=== PATIENT | male | born 1940 | race Caucasian/White ===

== ENCOUNTER 2018-02-18 20:49 | Emergency (ER) | payer MEDICARE ==
[~2018-02-18] VITALS: Ht 188 cm; Wt 97.2 kg
[~2018-02-18 20:49] MED LIST: AMIO200T40 PO; ASPI-1071 PO; COLE1TAB2 PO; DABI150C PO; DOCU100C40 PO; FURO40TA4 PO; HYDR-3972 PO; LISI-600 PO; LISI-604 PO; LOVA40TA2 PO; SPIR50TA5 PO
[2018-02-18 21:11] VITALS: BP 184/93
[2018-02-18] MEDS ORDERED: NITR100C6 PO (22:52)
== END 2018-02-18 22:58 | disposition home or self-care (01) ==
LOC: ER 20:50
DX: R35.0 Frequency of micturition (principal); R31.9 Hematuria, unspecified; R33.9 Retention of urine, unspecified
CPT/HCPCS: 99284

== ENCOUNTER 2022-02-13 05:52 | Day surgery (SDC) | payer MEDICARE ==
[2022-02-12 12:05] LABS: BASOPHILS % (AUTO) 0.7 % (0-1); EOSINOPHILS # (AUTO) 0.3 X10'3 (0-0.9); EOSINOPHILS % (AUTO) 5.9 % (0-6); HEMATOCRIT 41.7 % (42.0-52.0); HEMOGLOBIN 13.6 g/dl (14.0-17.9); LYMPHOCYTES # (AUTO) 0.8 X10'3 (1.1-4.8); LYMPHOCYTES % (AUTO) 13.6 % (21-51); MEAN CORPUSCULAR HEMOGLOBIN 30.2 PG (27.0-31.0); MEAN CORPUSCULAR HGB CONC 32.5 g/dL (33.0-36.5); MEAN PLATELET VOLUME 7.9 FL (7.4-10.4); MONOCYTES # (AUTO) 0.6 X10'3 (0-0.9); MONOCYTES % (AUTO) 11.3 % (2-12); NEUTROPHILS # (AUTO) 3.8 X10'3 (1.8-7.7); NEUTROPHILS % (AUTO) 68.5 % (42-75); PLATELET COUNT 158 X10'3 (140-440); RED BLOOD COUNT 4.49 X10'6 (4.70-6.10); RED CELL DISTRIBUTION WIDTH 13.5 % (11.5-14.5); WHITE BLOOD COUNT 5.5 X10'3 (4.5-11.0)
[2022-02-12 12:13] LABS: ALBUMIN 3.6 G/DL (3.4-5.0); ANION GAP 5 (8-16); BLOOD UREA NITROGEN 18 MG/DL (7-18); BUN/CREATININE RATIO 14.6 (5.4-32.0); CALCIUM 9.1 MG/DL (8.5-10.1); CHLORIDE 102 MMOL/L (99-107); CREATININE 1.23 MG/DL (0.60-1.10); GLUCOSE 106 MG/DL (70-104); POTASSIUM 4.3 MMOL/L (3.5-5.1); SODIUM 134 MMOL/L (135-145); TOTAL CARBON DIOXIDE 27.2 MMOL/L (24-32); eGFR 57 ML/MIN
[2022-02-12 12:17] LABS: APTT 27 SECONDS (22-32)
[2022-02-13] VITALS (12 sets, daily range): BP systolic 117–179; BP diastolic 49–76
[~2022-02-13] VITALS: Ht 188 cm; Wt 90.8 kg
[~2022-02-13 05:52] MED LIST changes: -AMIO200T40 PO; +AMIO200T61 PO; -LISI-600 PO; -LISI-604 PO; +LISI20TA28 PO; +LISI5TAB22 PO; +NITR100C6 PO
[2022-02-13] MEDS ORDERED: cefazolin/dext.iso 2gm/100ml 100 ML IV ONE (06:20)
[2022-02-13] MEDS ORDERED: ceFAZolin 1,000 MG in NS 50ML IVPB IV ONE (06:20)
[2022-02-13] MEDS ORDERED: LOSA50TA64 PO (06:27)
[2022-02-13] MEDS ORDERED: RIVA20TA PO (06:27)
[2022-02-13] MEDS ORDERED: midazolam 1 mg/ML 2ml injection ONE ×5 (07:33→09:54)
[2022-02-13] MEDS ORDERED: FENTANYL CITRATE/PF 50 MCG/1 ML VIAL ONE ×3 (07:33→08:38)
[2022-02-13] MEDS ORDERED: heparin 1,000 UNITS/NS 500ml 2,000 ML ONE (07:36)
[2022-02-13] MEDS ORDERED: LIDOcaine 1% 30ml preserv. free vial ONE ×2 (07:36→09:55)
[2022-02-13] MEDS ORDERED: iohexol 350MG/ML 100ml bottle IV ONE (07:41)
[2022-02-13] MEDS ORDERED: proCHLORperazine 10 MG/2 ml inj ONE (08:08)
[2022-02-13] MEDS ORDERED: sodium bicarbonate (8.4%) inj. 150 ML in dextrose 5%-water 850 ML IV ONE (08:10)
[2022-02-13] MEDS ORDERED: sodium bicarbonate (8.4%) inj. 150 ML in dextrose 5%-water 1,000 ML IV ONE (08:10)
[2022-02-13] MEDS ORDERED: LIDOcaine 2% jelly 6ml syringe ***for topical use only ONE (08:15)
[2022-02-13] MEDS ORDERED: HYDROmorphone 1 mg/ml syringe ONE ×2 (08:56→10:06)
[2022-02-13] MEDS ORDERED: diphenhydrAMINE 50 mg/ml inj ONE (08:56)
[2022-02-13] MEDS ORDERED: hydrALAZINE 20mg/ml inj. IV ONE (09:01)
[2022-02-13] MEDS ORDERED: heparin 1,000unit/ml 10ml vial 10 ML ONE (09:03)
[2022-02-13] MEDS ORDERED: HEPARIN SOD,PORK IN 0.45% NACL 250 ML IV ONE (09:03)
[2022-02-13] MEDS ORDERED: LIDOCAINE 1%/EPI 1:100,000 inj. 10 ML multi-dose vial ONE (09:54)
[2022-02-13] MEDS ORDERED: heparin 1,000 UNITS/NS 500ml 500 ML ONE (09:57)
[2022-02-13] MEDS ORDERED: normal saline 1000ml 1,000 ML IV SCH (11:25)
[2022-02-13] MEDS ORDERED: sodium bicarbonate (8.4%) inj. 150 MEQ in dextrose 5%-water 850 ML IV ONE (11:25)
[2022-02-13] MEDS: acetylcysteine 200 MG/ml 4ml vial PO SCH ×2 (12:18→16:11)
== END 2022-02-13 16:20 | disposition home or self-care (01) ==
LOC: SSTAY O 05:52
PROVIDERS: ATTEND Internal Medicine Cardiovascular Disease
DX: R00.1 Bradycardia, unspecified (principal); Z00.6 Encounter for examination for normal comparison and control in clinical research program; I08.1 Rheumatic disorders of both mitral and tricuspid valves; I25.10 Atherosclerotic heart disease of native coronary artery without angina pectoris; I48.20 Chronic atrial fibrillation, unspecified; Z79.01 Long term (current) use of anticoagulants; E78.5 Hyperlipidemia, unspecified; I10 Essential (primary) hypertension; Z90.49 Acquired absence of other specified parts of digestive tract; Z79.899 Other long term (current) drug therapy; Z98.890 Other specified postprocedural states; Z95.3 Presence of xenogenic heart valve
CPT/HCPCS: 33274; 36415; 80048; 85025; 85610; 85730; 93005; 93312; 93325; 99152; 99153; C1760; C1769; C1894; J0360; J0690; J0780; J1170; J1200; J1644; J2250; J3010; J3490; J7030; Q9967; 76937; A6258; A6449

== ENCOUNTER 2022-03-15 13:01 | Day surgery (SDC) | payer MEDICARE ==
[2022-03-14 10:21] LABS: BASOPHILS % (AUTO) 0.4 % (0-1); EOSINOPHILS # (AUTO) 0.3 X10'3 (0-0.9); EOSINOPHILS % (AUTO) 5.9 % (0-6); HEMATOCRIT 38.7 % (42.0-52.0); HEMOGLOBIN 12.7 g/dl (14.0-17.9); LYMPHOCYTES # (AUTO) 0.7 X10'3 (1.1-4.8); LYMPHOCYTES % (AUTO) 13.3 % (21-51); MEAN CORPUSCULAR HEMOGLOBIN 30.2 PG (27.0-31.0); MEAN CORPUSCULAR HGB CONC 32.7 g/dL (33.0-36.5); MEAN CORPUSCULAR VOLUME 92.3 FL (78-98); MEAN PLATELET VOLUME 8.8 FL (7.4-10.4); MONOCYTES # (AUTO) 0.7 X10'3 (0-0.9); MONOCYTES % (AUTO) 13.7 % (2-12); NEUTROPHILS # (AUTO) 3.5 X10'3 (1.8-7.7); NEUTROPHILS % (AUTO) 66.7 % (42-75); PLATELET COUNT 146 X10'3 (140-440); RED CELL DISTRIBUTION WIDTH 13.9 % (11.5-14.5); WHITE BLOOD COUNT 5.2 X10'3 (4.5-11.0)
[2022-03-14 10:26] LABS: ALBUMIN 3.7 G/DL (3.4-5.0); ANION GAP 6 (8-16); BLOOD UREA NITROGEN 16 MG/DL (7-18); BUN/CREATININE RATIO 12.9 (5.4-32.0); CALCIUM 8.9 MG/DL (8.5-10.1); CHLORIDE 104 MMOL/L (99-107); CREATININE 1.24 MG/DL (0.60-1.10); GLUCOSE 134 MG/DL (70-104); POTASSIUM 4.3 MMOL/L (3.5-5.1); SODIUM 138 MMOL/L (135-145); TOTAL CARBON DIOXIDE 28.2 MMOL/L (24-32); eGFR 56 ML/MIN
[2022-03-14 10:28] LABS: APTT 30 SECONDS (22-32)
[2022-03-15] VITALS (10 sets, daily range): BP systolic 101–152; BP diastolic 52–80
[~2022-03-15] VITALS: Ht 188 cm; Wt 88.8 kg
[~2022-03-15 13:01] MED LIST changes: -AMIO200T61 PO; -ASPI-1071 PO; -DABI150C PO; -DOCU100C40 PO; -FURO40TA4 PO; -HYDR-3972 PO; -LISI20TA28 PO; -LISI5TAB22 PO; +LOSA50TA64 PO; -NITR100C6 PO; +RIVA20TA PO; -SPIR50TA5 PO
[2022-03-15] MEDS ORDERED: midazolam 1 mg/ML 2ml injection ONE (13:56)
[2022-03-15] MEDS ORDERED: ceFAZolin 1000mg inj ONE (13:57)
[2022-03-15] MEDS ORDERED: LIDOcaine 1% 30ml preserv. free vial ONE (13:57)
[2022-03-15] MEDS ORDERED: LIDOCAINE 1%/EPI 1:100,000 inj. 10 ML multi-dose vial ONE (13:57)
[2022-03-15] MEDS ORDERED: fentaNYL/PF 50MCG/1 ML 2ML syringe ONE (13:57)
[2022-03-15] MEDS ORDERED: vancomycin 1,500 MG in NS 300ml IV soln IV ONE (13:59)
[2022-03-15] MEDS ORDERED: ceFAZolin inj. 2,000 MG in dextrose 5%-water 100 ML IV ONE (13:59)
[2022-03-15] MEDS ORDERED: LIDOCAINE 2%/EPI 1:100,000 inj. Multi-dose 20 ML VIAL ONE (14:00)
[2022-03-15] MEDS ORDERED: normal saline 1000ml 1,000 ML IV SCH (14:00)
[2022-03-15] MEDS ORDERED: hydrALAZINE 20mg/ml inj. IV ONE (14:38)
[2022-03-15] MEDS ORDERED: HYDROcodone/acetaminophen 10/325mg tab PO PRN (16:25)
[2022-03-15] MEDS ORDERED: HYDROcodone/acetaminophen 5mg/325mg tablet PO PRN (16:25)
== END 2022-03-15 21:15 | disposition home or self-care (01) ==
LOC: SSTAY O 13:01
PROVIDERS: ATTEND Internal Medicine Cardiovascular Disease
DX: I49.5 Sick sinus syndrome (principal); I25.10 Atherosclerotic heart disease of native coronary artery without angina pectoris; I48.20 Chronic atrial fibrillation, unspecified; I10 Essential (primary) hypertension; I44.7 Left bundle-branch block, unspecified; E78.5 Hyperlipidemia, unspecified; I08.0 Rheumatic disorders of both mitral and aortic valves; Z95.2 Presence of prosthetic heart valve; Z95.1 Presence of aortocoronary bypass graft; Z85.46 Personal history of malignant neoplasm of prostate; Z90.79 Acquired absence of other genital organ(s); Z90.49 Acquired absence of other specified parts of digestive tract; Z72.89 Other problems related to lifestyle; Z79.899 Other long term (current) drug therapy
CPT/HCPCS: 33207; 36415; 71046; 80048; 85025; 85610; 85730; 93005; 99152; 99153; C1894; C1898; J0360; J0690; J2250; J3010; J7030; A6449; J3490